=== PATIENT | female | born 2000 | race Caucasian/White ===

== ENCOUNTER 2022-03-29 17:12 | Emergency (ER) | payer BC ==
[2022-03-29] MEDS ORDERED: ONDANSETRON ODT 4 MG TAB PO STA (17:39)
[2022-03-29 18:00] LABS: ALT 17 U/L (4-34); AST 18 U/L (14-36); African American GFR (CKD) >90 (>60 ml/min/1.73 sqM); Albumin 4.4 g/dL (3.5-5.0); Alkaline Phosphatase 110 U/L (38-126); Anion Gap 11 mmol/L; Blood Urea Nitrogen 7 mg/dL (7-17); Calcium 9.3 mg/dL (8.4-10.2); Carbon Dioxide 20 mmol/L (22-30); Chloride 104 mmol/L (98-107); Glucose 112 mg/dL (74-99); Non-African American GFR(CKD) >90 (>60 ml/min/1.73 sqM); Potassium 3.3 mmol/L (3.5-5.1); Sodium 135 mmol/L (137-145); Total Bilirubin 0.8 mg/dL (0.2-1.3); Total Protein 7.1 g/dL (6.3-8.2)
[2022-03-29 18:05] LABS: Basophils % (A) 0 %; Eosinophils % (A) 0 %; HCT 36.8 % (34.0-46.0); HGB 11.5 gm/dL (11.4-16.0); Hypochromasia Slight; Lymphocytes # (A) 0.9 k/uL (1.0-4.8); Lymphocytes % (A) 5 %; MCH 24.2 pg (25.0-35.0); MCHC 31.3 g/dL (31.0-37.0); MCV 77.5 fL (80.0-100.0); Monocytes # (A) 0.5 k/uL (0-1.0); Monocytes % (A) 3 %; Neutrophils # (A) 14.8 k/uL (1.3-7.7); Neutrophils % (A) 91 %; Platelet Count 479 k/uL (150-450); RBC 4.75 m/uL (3.80-5.40); RDW 14.8 % (11.5-15.5); WBC 16.3 k/uL (4.0-11.0)
[2022-03-29 19:26] VITALS: RESP 18
[2022-03-29] MEDS ORDERED: FAMOTIDINE 20 MG/2 ML VIAL IV STA (20:45)
[2022-03-29] MEDS ORDERED: SODIUM CHLORIDE 0.9% 1,000 ML IV ONE (20:45)
[2022-03-29 20:55] VITALS: BP 123/71; PULSE 93; TEMP 101.7
[2022-03-29] MEDS ORDERED: ACETAMINOPHEN TAB 325 MG TAB PO STA (20:57)
[2022-03-29 21:26] LABS: Appearance,Urine Clear (Clear); Bacteria,Urine Rare /hpf; Bilirubin,Urine Negative (Negative); Blood,Urine Large (Negative); Color,Urine Yellow; Glucose,Urine (UA) Negative (Negative); Hyaline Casts,Urine 1 /lpf (0-2); Ketones,Urine 4+ (Negative); Leukocyte Esterase,Urine Moderate (Negative); Mucus,Urine Many /hpf; Nitrite,Urine Negative (Negative); Protein,Urine Trace (Negative); RBC,Urine 46 /hpf (0-5); Specific Gravity,Urine 1.025 (1.001-1.035); Squamous Epithelial Cell,Urine 4 /hpf (0-4); WBC,Urine 6 /hpf (0-5)
--- NOTE | 2022-03-29 21:28 | ED ---
General Adult HPI - General Chief complaint: Nausea/Vomiting/Diarrhea Stated complaint: Vomiting/Refered by urgent care Time Seen by Provider: 03/29/22 20:06 Source: patient Mode of arrival: ambulatory Limitations: no limitations - History of Present Illness Initial comments: Patient is a 21-year-old female presenting with chief complaint of nausea and v omiting. Symptoms have been present for the last 3 days. Patient was seen at urgent care 2 times for this issue, she was given fluids and tested negative for influenza. Patient states that she is rarely able to keep down food or fluids. Patient stated that earlier at urgent care she was feeling numbness in her face and extremities. Patient states that at that time she was taking very deep marianne aths in order to calm her nausea. He admits to upper abdominal pain. Patient has had a mild fever at home. Patient is currently on her menstrual cycle. She denies any chest pain, shortness of breath, pelvic pain, dysuria, urgency, frequency, diarrhea, constipation, hematochezia, melena. - Related Data Home Medications Medication Instructions Recorded Confirmed Ondansetron Odt [Zofran Odt] 4 mg PO Q8H PRN 03/29/22 03/29/22 Previous Rx's Medication Instructions Recorded Famotidine [Pepcid] 20 mg PO BID #10 tablet 03/29/22 Allergies Allergy/AdvReac Type Severity Reaction Status Date / Time No Known Allergies Allergy Verified 03/29/22 22:20 Review of Systems ROS Statement: Those systems with pertinent positive or pertinent negative responses have been documented in the HPI. ROS Other: All systems not noted in ROS Statement are negative. Past Medical History Past Medical History: No Reported History History of Any Multi-Drug Resistant Organisms: None Reported Past Surgical History: No Surgical Hx Reported Past Psychological History: No Psychological Hx Reported Smoking Status: Never smoker Past Alcohol Use History: None Reported Past Drug Use History: None Reported General Exam Limitations: no limitations General appearance: alert, in no apparent distress Head exam: Present: atraumatic, normocephalic, normal inspection Eye exam: Present: normal appearance, EOMI. Absent: scleral icterus, perior bital swelling Neck exam: Present: normal inspection Respiratory exam: Present: normal lung sounds bilaterally. Absent: respiratory distress, wheezes, rales, rhonchi, stridor Cardiovascular Exam: Present: regular rate, normal rhythm, normal heart sounds. Absent: systolic murmur, diastolic murmur, rubs, gallop, clicks GI/Abdominal exam: Present: soft, tenderness (Upper quadrants), hyperactive bow el sounds. Absent: distended, guarding, rebound, rigid Neurological exam: Present: alert, oriented X3, CN II-XII intact Psychiatric exam: Present: normal affect, normal mood Skin exam: Present: warm, dry, intact, normal color. Absent: rash Course Vital Signs 03/29/22 03/29/22 17:24 20:55 Temperature 99.1 F 101.7 F H Pulse Rate 96 93 Respiratory 18 18 Rate Blood Pressure 132/69 123/71 O2 Sat by Pulse 99 99 Oximetry Medical Decision Making - Medical Decision Making Patient is a 21-year-old female presenting with chief complaint of nausea and vomiting. This is occasionally accompanied by dull upper abdominal pain. Symptoms have been ongoing for the last 3 days. On examination there is a vague upper abdominal pain, hyperactive bowel sounds in all 4 quadrants. Patient is given Pepcid and IV fluids. Patient is febrile at 101F. WBC is elevated at 16.3, reactivity may be playing a part in this due to the vomiting. Mildly low sodium and potassium, patient is receiving IV fluids. Patient is given Pepcid, she reports great improvement in her symptoms. Urine shows signs of dehydration, patient admits to being on her menstrual cycle today which accounts for blood present. Negative hCG. Negative Covid. Patient tested negative for influenza today at urgent care. Ultrasound is unremarkable. On reassessment patient is resting comfortably reporting great improvement in her symptoms. She appears stable for discharge with outpatient follow-up at this time. Follow-up with PCP in one to 2 days. Report back to ER with any new or worsening symptoms. Patient is provided with a prescription for Pepcid. I discussed return parameters alarm symptoms. Answered all questions. Patient conveyed verbal understanding and agreed to the plan. I discussed this case with my attending Dr. Reynoso. - Lab Data Result diagrams: 03/29/22 17:36 03/29/22 17:36 Lab Results 03/29/22 03/29/22 03/29/22 Range/Units 17:36 17:36 20:23 WBC 16.3 H (4.0-11.0) k/uL RBC 4.75 (3.80-5.40) m/uL Hgb 11.5 (11.4-16.0) gm/dL Hct 36.8 (34.0-46.0) % MCV 77.5 L (80.0-100.0) fL MCH 24.2 L (25.0-35.0) pg MCHC 31.3 (31.0-37.0) g/dL RDW 14.8 (11.5-15.5) % Plt Count 479 H (150-450) k/uL MPV 7.0 Neutrophils % 91 % Lymphocytes % 5 % Monocytes % 3 % Eosinophils % 0 % Basophils % 0 % Neutrophils # 14.8 H (1.3-7.7) k/uL Lymphocytes # 0.9 L (1.0-4.8) k/uL Monocytes # 0.5 (0-1.0) k/uL Eosinophils # 0.0 (0-0.7) k/uL Basophils # 0.0 (0-0.2) k/uL Hypochromasia Slight Sodium 135 L (137-145) mmol/L Potassium 3.3 L (3.5-5.1) mmol/L Chloride 104 (98-107) mmol/L Carbon Dioxide 20 L (22-30) mmol/L Anion Gap 11 mmol/L BUN 7 (7-17) mg/dL Creatinine 0.63 (0.52-1.04) mg/dL Est GFR (CKD-EPI)AfAm >90 (>60 ml/min/1.73 sqM) Est GFR (CKD-EPI)NonAf >90 (>60 ml/min/1.73 sqM) Glucose 112 H (74-99) mg/dL Calcium 9.3 (8.4-10.2) mg/dL Total Bilirubin 0.8 (0.2-1.3) mg/dL AST 18 (14-36) U/L ALT 17 (4-34) U/L Alkaline Phosphatase 110 (38-126) U/L Total Protein 7.1 (6.3-8.2) g/dL Albumin 4.4 (3.5-5.0) g/dL Urine Color Urine Appearance (Clear) Urine pH (5.0-8.0) Ur Specific [place] (1.001-1.035) Urine Protein (Negative) Urine Glucose (UA) (Negative) Urine Ketones (Negative) Urine Blood (Negative) Urine Nitrite (Negative) Urine Bilirubin (Negative) Urine Urobilinogen (<2.0) mg/dL Ur Leukocyte Esterase (Negative) Urine RBC (0-5) /hpf Urine WBC (0-5) /hpf Ur Squamous Epith Cells (0-4) /hpf Urine Bacteria (None) /hpf Hyaline Casts (0-2) /lpf Urine Mucus (None) /hpf Urine HCG, Qual (Not Detectd) Coronavirus (PCR) Not Detected (Not Detectd) 03/29/22 03/29/22 Range/Units 21:02 21:02 WBC (4.0-11.0) k/uL RBC (3.80-5.40) m/uL Hgb (11.4-16.0) gm/dL Hct (34.0-46.0) % MCV (80.0-100.0) fL MCH (25.0-35.0) pg MCHC (31.0-37.0) g/dL RDW (11.5-15.5) % Plt Count (150-450) k/uL MPV Neutrophils % % Lymphocytes % % Monocytes % % Eosinophils % % Basophils % % Neutrophils # (1.3-7.7) k/uL Lymphocytes # (1.0-4.8) k/uL Monocytes # (0-1.0) k/uL Eosinophils # (0-0.7) k/uL Basophils # (0-0.2) k/uL Hypochromasia Sodium (137-145) mmol/L Potassium (3.5-5.1) mmol/L Chloride (98-107) mmol/L Carbon Dioxide (22-30) mmol/L Anion Gap mmol/L BUN (7-17) mg/dL Creatinine (0.52-1.04) mg/dL Est GFR (CKD-EPI)AfAm (>60 ml/min/1.73 sqM) Est GFR (CKD-EPI)NonAf (>60 ml/min/1.73 sqM) Glucose (74-99) mg/dL Calcium (8.4-10.2) mg/dL Total Bilirubin (0.2-1.3) mg/dL AST (14-36) U/L ALT (4-34) U/L Alkaline Phosphatase (38-126) U/L Total Protein (6.3-8.2) g/dL Albumin (3.5-5.0) g/dL Urine Color Yellow Urine Appearance Clear (Clear) Urine pH 6.0 (5.0-8.0) Ur Specific [place] 1.025 (1.001-1.035) Urine Protein Trace H (Negative) Urine Glucose (UA) Negative (Negative) Urine Ketones 4+ H (Negative) Urine Blood Large H (Negative) Urine Nitrite Negative (Negative) Urine Bilirubin Negative (Negative) Urine Urobilinogen 4.0 (<2.0) mg/dL Ur Leukocyte Esterase Moderate H (Negative) Urine RBC 46 H (0-5) /hpf Urine WBC 6 H (0-5) /hpf Ur Squamous Epith Cells 4 (0-4) /hpf Urine Bacteria Rare H (None) /hpf Hyaline Casts 1 (0-2) /lpf Urine Mucus Many H (None) /hpf Urine HCG, Qual Not Detected (Not Detectd) Coronavirus (PCR) (Not Detectd) Disposition Clinical Impression: Gastritis Disposition: HOME SELF-CARE Condition: Good Instructions (If sedation given, give patient instructions): Gastritis (ED), Acute Nausea and Vomiting (ED) Additional Instructions: Follow-up with PCP in one to 2 days. Report back to ER with any new or worsening symptoms. Take medication as prescribed. Prescriptions: Famotidine [Pepcid] 20 mg PO BID #10 tablet Is patient prescribed a controlled substance at d/c from ED?: No Referrals: Donte Giraldo MD [Primary Care Provider] - 1-2 days Time of Disposition: 22:36
--- NOTE | 2022-03-29 22:01 | US ---
EXAMINATION TYPE: US abdomen limited DATE OF EXAM: 03/29/2022 COMPARISON: NONE CLINICAL HISTORY: nausea, vomiting, RUQ/epigastric pain. RUQ pain, nausea, vomiting x 3 days EXAM MEASUREMENTS: Liver Length: 15.5 cm Gallbladder Wall: 0.22 cm CBD: 0.22 cm Right Kidney: 13.6 x 4.7 x 5.8 cm Pancreas: Obscured by bowel gas Liver: Appears wnl Gallbladder: wnl Evidence for sonographic Sinclair's sign: no CBD: wnl Right Kidney: No hydronephrosis or masses seen IMPRESSION: No evidence for acute abdominal process.
== END 2022-03-29 23:17 | disposition home or self-care (01) ==
LOC: EC 17:12
DX: K29.70 Gastritis, unspecified, without bleeding (principal); Z20.822 Contact with and (suspected) exposure to COVID-19
CPT/HCPCS: 36415; 76705; 80053; 81001; 81025; 85025; 87635; 96361; 96374; 99284

== ENCOUNTER 2022-12-28 06:52 | Day surgery (SDC) | payer BC, OTHER ==
--- NOTE | 2022-12-27 16:12 | P.HPOB ---
History of Present Illness H&P Date: 12/27/22 Chief Complaint: Desire for intrauterine device, intolerance of exam in office This is a 22 y.o. female, 0, who presents for examination under anesthesia and Paragard intrauterine device insertion. She was unable to tolerate insertion in the office. The patient denies every having sexual intercourse and wants to wait until she has control. She has used oral contraceptives and Depo-Provera in the past for her heavier periods. She had trouble remembering to take control pills and she bled for 8-9 months on Depo-Provera. She does not want anything hormonal and understands this will not help with her heavy menses. Her cervix was too stenotic to insert the IUD in the office and she was unable to tolerate cervical dilation in the office. Despite this, she still wished to proceed with exam under anesthesia and cervical dilation in order to insert Paragard IUD. OB Hx: G0. [employer] Work[employer] Hx: No history of sexual intercourse. Menses occur every 28-32 days and last 4-5 days with 1st couple days heavier, changing pads every few hours Social Hx: Single. Works part-time and [employer]. Review of Systems Constitutional: Denies chills, Denies fever Eyes: denies blurred vision, denies pain Ears, nose, mouth and throat: Denies headache, Denies sore throat Cardiovascular: Denies chest pain, Denies shortness of breath Respiratory: Denies cough Gastrointestinal: Denies abdominal pain, Denies diarrhea, Denies nausea, Denies vomiting Genitourinary: Denies dysuria, Denies hematuria, Denies pelvic pain Menstruation: Reports period heavy Musculoskeletal: Denies myalgias Integumentary: Denies pruritus, Denies rash Neurological: Denies numbness, Denies weakness Psychiatric: Denies anxiety, Denies depression Past Medical History Past Medical History: No Reported History Additional Past Medical History / Comment(s): anemia History of Any Multi-Drug Resistant Organisms: None Reported Past Surgical History: No Surgical Hx Reported Past Anesthesia/Blood Transfusion Reactions: No Reported Reaction Past Psychological History: No Psychological Hx Reported Smoking Status: Never smoker Past Alcohol Use History: None Reported Past Drug Use History: None Reported - Past Family History Mother Family Medical History: Cancer Additional Family Medical History / Comment(s): breast Medications and Allergies Home Medications Medication Instructions Recorded Confirmed Type No Known Home Medications 12/21/22 12/21/22 History Allergies Allergy/AdvReac Type Severity Reaction Status Date / Time No Known Allergies Allergy Verified 12/21/22 14:10 Exam Osteopathic Statement: *. No significant issues noted on an osteopathic structural exam other than those noted in the History and Physical/Consult. GEN: Obese female in no acute distress HEENT: within normal limits Heart: regular rate and rhythm Lungs: clear to auscultation bilaterally Abdomen: soft, non-tender Pelvic: uterus anteverted, non-tender with no adnexal masses or tenderness noted Extremities: neg. Meli's Assessment and Plan (1) Encounter for IUD insertion Status: Acute Code(s): Z30.430 - ENCOUNTER FOR INSERTION OF INTRAUTERINE CONTRACEPTIVE DEVICE SNOMED Code(s): 340052805 (2) Cervical stenosis (uterine cervix) Status: Acute Code(s): N88.2 - STRICTURE AND STENOSIS OF CERVIX UTERI SNOMED Code(s): 04666525 (3) Family planning initiation Status: Acute Code(s): Z30.09 - ENCOUNTER FOR OTH GENERAL CNSL AND ADVICE ON CONTRACEPTION SNOMED Code(s): 115270401 Plan: Proceed with examination under anesthesia, cervical dilation and Paragard intrauterine device insertion.
[~2022-12-28 06:52] MED LIST: DEXAMETHASONE SOD PHOSPHATE 4 MG/ML 1 ML VIAL IV ONE; HYDROmorphone 0.5 MG/0.5 ML SYRINGE IVP PRN; LACTATED RINGERS 1,000 ML IV SCH; LIDOCAINE 1% (10MG/ML) FOR IV START INTRADERMA PRN; MIDAZOLAM 2 MG/2 ML VIAL IV PRN; ONDANSETRON 4 MG/2 ML VIAL IVP ONE; Pre Op ABX Message 1 EACH MISC MISCELLANE ONE
[2022-12-28 07:34] VITALS: RESP 16
[2022-12-28] MEDS ORDERED: fentaNYL (PF) 50 MCG/ML 2 ML AMP ONE (07:53)
[2022-12-28] MEDS ORDERED: MIDAZOLAM 2 MG/2 ML VIAL ONE (07:53)
[2022-12-28] MEDS ORDERED: PROPOFOL 10 MG/ML 20 ML VIAL IV ONE (07:53)
[2022-12-28] MEDS ORDERED: LIDOCAINE 2% INJ 20 MG/ML (2 ML VIAL) ONE (07:53)
--- NOTE | 2022-12-28 08:18 | P.OP ---
Date of Procedure: 12/28/22 Preoperative Diagnosis: Family planning Intolerance of exam in the office Cervical stenosis Postoperative Diagnosis: Family planning Intolerance of exam in office Procedure(s) Performed: Examination under anesthesia Placement of ParaGard intrauterine device Anesthesia: other (Mask general) Surgeon: Isha Grewal Estimated Blood Loss (ml): 2 Pathology: none sent Condition: stable Disposition: same day Indications for Procedure: This is a 22 y.o. female, 0, who presents for examination under anesthesia and Paragard intrauterine device insertion. She was unable to tolerate insertion in the office. The patient denies every having sexual intercourse and wants to wait until she has control. She has used oral contraceptives and Depo-Provera in the past for her heavier periods. She had trouble remembering to take control pills and she bled for 8-9 months on Depo-Provera. She does not want anything hormonal and understands this will not help with her heavy menses. Her cervix was too stenotic to insert the IUD in the office and she was unable to tolerate cervical dilation in the office. Despite this, she still wished to proceed with exam under anesthesia and cervical dilation in order to insert Paragard IUD. Operative Findings: Uterus is mid position, normal size, with no adnexal masses palpated. Cervix is nulliparous. Uterus is sounded to 8 cm. Cervix is not noted to be stenotic on exam. Description of Procedure: The patient is taken to the operating room where she is placed in the dorsal lithotomy position. She is prepped and draped in the normal sterile fashion. Her bladder is drained with a catheter and then removed. Examination is performed under anesthesia. Uterus is found to be mid position with no adnexal masses palpated. Next a weighted speculum was placed in the patient's vagina and right angle retractor is used to visualize the cervix. The anterior lip of the cervix is grasped with a single-tooth tenaculum. Uterus is sounded to 8 cm. Sound was then removed and ParaGard intrauterine device easily placed within the uterine cavity and deployed in the normal fashion. The strings are then trimmed to approximately 2 cm long. All other instruments are removed from the vagina. Pelvic exam is performed one further time and strings are palpated and no IUD parts are palpated. All sponge and needle counts are correct. The patient is then taken to recovery room in stable condition.
[2022-12-28 08:31] VITALS: TEMP 98
[2022-12-28] MEDS ORDERED: KETOROLAC 15 MG/ML 1 ML VIAL IVP ONE (08:35)
[2022-12-28 09:37] VITALS: BP 112/74; PULSE 71
== END 2022-12-28 09:50 | disposition home or self-care (01) ==
LOC: OR 06:52
PROVIDERS: ATTEND Obstetrics & Gynecology
DX: Z30.2 Encounter for sterilization (principal); N88.2 Stricture and stenosis of cervix uteri; D64.9 Anemia, unspecified; Z80.3 Family history of malignant neoplasm of breast
CPT/HCPCS: 58300; 57410; 81025; J2250; J1100; J2405; J3010; J1885; J2704; J1170; J2001